=== PATIENT | female | born 1985 | race Caucasian/White ===

== ENCOUNTER 2017-04-09 05:57 | Day surgery (SDC) | payer OTHER ==
[2017-04-09] VITALS (9 sets, daily range): BP systolic 94–116; BP diastolic 60–72; PULSE 69–78; RESP 13–27; Ht 157.5 cm; Wt 78.5 kg
[~2017-04-09] VITALS: Ht 157.5 cm; Wt 78.5 kg
[2017-04-09] MEDS ORDERED: ONDANSETRON 4 MG INJ ONE (07:00)
[2017-04-09] MEDS ORDERED: DEXAMETHASONE 4 MG/ML 1 ML INJ ONE (07:00)
--- NOTE | 2017-04-09 07:32 | HPN ---
Date/Time of Note Date/Time of Note DATE: 04/09/17 TIME: 07:31 Interval H&P Admission Note Pt. seen H&P reviewed: No system changes NOEL MCKOY DPM Apr 09, 2017 07:32
[2017-04-09] MEDS ORDERED: LIDOCAINE 1% (MPF) 30 ML INJ ONE (07:38)
[2017-04-09] MEDS ORDERED: BUPIVACAINE 0.5% (SDV) 30 ML INJ ONE (07:38)
[2017-04-09] MEDS ORDERED: PROPOFOL 100 ML ONE (07:50)
[2017-04-09] MEDS ORDERED: FENTAnyl 50 MCG/ML VIAL ONE ×2 (07:51→08:15)
[2017-04-09] MEDS ORDERED: MIDAZOLAM 1 MG/ML 2 ML INJ ONE (08:01)
[2017-04-09] MEDS ORDERED: CEFAZOLIN 1 GM INJ ONE (08:54)
[2017-04-09] MEDS ORDERED: LIDOCAINE 2% (SDV) 5 ML INJ ONE (08:54)
--- NOTE | 2017-04-09 09:05 | SIPON ---
Date/Time of Note Date/Time of Note DATE: 04/09/17 TIME: 09:03 Operative Report Preoperative Diagnosis Removal of osteochondroma, left Hallux. Postoperative Diagnosis same Operation/Procedure Performed Removal of Osteochondroma. Surgeon see signature line operations assistant none. Anesthesia: MAC Estimated blood loss: minimal Transfusion Required none Specimen Osteochondroma, left Hallux. Grafts/Implants none Complications none NOEL MCKOY DPM Apr 09, 2017 09:05
[2017-04-09] MEDS ORDERED: ONDANSETRON (ODT) 4 MG TAB ODT PRN (09:30)
[2017-04-09] MEDS ORDERED: HYDROCODONE/APAP (10/325) TAB PO PRN (09:30)
--- NOTE | 2017-04-09 10:00 | RADRPT ---
PROCEDURE: XR left foot. CLINICAL INDICATION: Left foot pain. TECHNIQUE: 3 views. Frontal, lateral, and oblique. COMPARISON: None. FINDINGS: There is no fracture or dislocation. The soft tissues are normal. Articular surfaces are intact. There is no lytic or blastic lesion. There is no radiopaque foreign body. IMPRESSION: 1. Normal images of the left foot. RPTAT: QQ .Earl Miller MD, MD Date Time Electronically viewed and signed by .Earl Miller MD, on 04/09/2017 09:59 .R/
--- NOTE | 2017-04-09 10:59 | OPR ---
DATE OF OPERATION: 04/09/2017 PREOPERATIVE DIAGNOSIS: Osteochondroma of the left great toe. POSTOPERATIVE DIAGNOSIS: Osteochondroma of the left great toe. ANESTHESIA: MAC with local. OPERATION: The patient was brought into the OR and approximately 8 ml of 0.5 percent plain Marcaine was utilized circumferentially around the great toe of the left foot. After anesthesia was achieved, the area was prepped and draped in usual sterile fashion. A tourniquet had been inflated around the ankle and Esmarch was utilized to exsanguinate the foot and ankle. The tourniquet was inflated to approximately 250 mmHg. Attention was then directed to the distal aspect of the left hallux. Utilizing a number 15 blade, a surgical linear incision was done at the distal aspect of the toenail bed and the distal skin of the distal phalanx. Utilizing a number 15 blade, care was taken to reflect the nailbed off of the offending osteochondroma. The osteochondroma was in clear view, it was approximately a 0.5 cm elevated. Utilizing a sagittal saw, the osteochondroma was removed from the distal phalanx in toto. In addition, an approximately 3 mm amount of bone was removed from the distal aspect of the distal phalanx. A rasp was then utilized to smooth down the distal phalanx. The area was copiously lavaged with antibiotic solution. The nailbed was then applied back over the distal phalanx. We utilized allograft EpiFix over the area to reduce inflammation, infection and to propagate healing. The nailbed was then coapted back over the distal phalanx utilizing 3- 0 Vicryl sutures circumferentially around the incision site. The area was then dressed with Adaptic, 4x4s, rolled gauze and Coban. The tourniquet was released and normal reactive hyperemia was noted to the left great toe. This patient tolerated the procedure well and left the room in stable condition. 1 gram of Ancef was given prior to tourniquet inflation. Also osteochondroma was sent to pathology for gross analysis. Dictated By: Servando Wagner DPM /[email or web address]/silva /Document#: [id number]
== END 2017-04-09 10:29 | disposition home or self-care (01) ==
LOC: SDS 05:57
PROVIDERS: ATTEND Podiatrist Foot & Ankle Surgery
DX: D16.32 Benign neoplasm of short bones of left lower limb (principal); J45.909 Unspecified asthma, uncomplicated
CPT/HCPCS: 28108; 73630; J0690; J2250; J3010; Q4131; Z7512; Z7610; J1100; J2405